=== PATIENT | female | born 2000 | race Native Hawaiian/Other Pacific Islander ===

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

== ENCOUNTER 2020-01-22 09:15 | Outpatient (CLI) | payer OTHER ==
[2020-01-22 09:48] LABS: PLATELET COUNT 344 K/uL (152-353)
== END 2020-01-22 18:56 | disposition home or self-care (01) ==
LOC: LABW 09:15
PROVIDERS: Nurse Practitioner Family
DX: Z68.35 Body mass index [BMI] 35.0-35.9, adult (principal); Z13.21 Encounter for screening for nutritional disorder; R10.84 Generalized abdominal pain; R11.10 Vomiting, unspecified
CPT/HCPCS: 36415; 80053; 80061; 81000; 82306; 82607; 83036; 84439; 84443; 85027; 86318

== ENCOUNTER 2020-01-28 08:02 | Outpatient (CLI) | payer OTHER | END 2020-01-28 21:49 | disposition home or self-care (01) | LOC: US 08:02 | DX: R10.84 Generalized abdominal pain (principal); R11.10 Vomiting, unspecified ==

== ENCOUNTER 2021-05-27 19:28 | Emergency (ER) | payer OTHER ==
[~2021-05-27] VITALS: Ht 152.4 cm; Wt 88.9 kg
[2021-05-27 19:32] VITALS: BP 158/100; TEMP 99.8
[2021-05-27 20:23] LABS: PLATELET COUNT 415 K/uL (152-353)
[2021-05-27 20:30] LABS: POTASSIUM 3.4 mmol/L (3.6-5.2)
== END 2021-05-27 20:47 | disposition home or self-care (01) ==
LOC: ED 19:28
PROVIDERS: Hospitalist
DX: L03.116 Cellulitis of left lower limb (principal); L03.115 Cellulitis of right lower limb
CPT/HCPCS: 36415; 80048; 85008; 85027; 96372; 99283; J0696; J2930

== ENCOUNTER 2021-11-12 20:16 | Emergency (ER) | payer OTHER ==
[~2021-11-12] VITALS: Ht 154.9 cm; Wt 93.0 kg
[2021-11-12 21:06] VITALS: BP 123/80; TEMP 97.6
== END 2021-11-12 21:06 | disposition home or self-care (01) ==
LOC: ED 20:16
DX: M43.6 Torticollis (principal); M62.838 Other muscle spasm
CPT/HCPCS: 99282